=== PATIENT | male | born 1965 | race Caucasian/White ===

== ENCOUNTER 2016-07-19 18:16 | Inpatient (IN) | payer SELFPAY ==
--- NOTE | ~2016-07-19 | PN ---
Unit #: [id number] #: [id number] Patient: KANDACE LUCERO [id number] [facility] [address] [place] [address] [id number] MR#: [id number] NAME: KANDACE LUCERO ROOM: [facility] Age: 50 Sex: M Admission Date: 07/19/2016 : 1965 Attending Physician: Girish Medina M.D. Admitting Physician: Girish Medina M.D. Primary Care Physician: Generic Doctor Not In System [facility] PROGRESS NOTES DATE 07/21/2016 DISCUSSION The patient is in somewhat brighter spirits today and exhibits little in the way of signs or symptoms of withdrawal. Should he sustained progress discharge should take place as early as tomorrow. Dictated by... Girish Medina M.D. CB/joyce TD: 07/22/2016 00:46 JOB #: [id number] [facility] PROGRESS NOTES X Girish Medina MD X PROGRESS NOTE
--- NOTE | ~2016-07-19 | HP ---
Unit #: [id number] #: [id number] Patient: AKNDACE LUCERO [id number] [facility] [address] [place] [address] [id number] I MR#: [id number] NAME: KANDACE LUCERO ROOM: [facility] Age: 50 Sex: M Admission Date: 07/19/2016 : 1965 Attending Physician: Girish Medina M.D. Admitting Physician: Girish Medina M.D. Primary Care Physician: Generic Doctor Not In System HISTORY AND PHYSICAL HISTORY OF PRESENT ILLNESS The patient is a 50-year-old male admitted to [facility] on 07/19/2016 for alcohol and cocaine abuse. It was difficult to awaken the patient when I came in the room so some of the information was retrieved from his chart. PAST MEDICAL HISTORY 1. Alcohol abuse. 2. Drug abuse. 3. Nicotine dependence. PAST SURGICAL HISTORY [place]nee SOCIAL HISTORY The patient owns a restaurant. He currently lives in a home by himself. He smokes one pack of cigarettes daily, drinks one fifth of alcohol two to three times per week and uses cocaine one to two grams two to three times a week. FAMILY MEDICAL HISTORY Noncontributory. ALLERGIES No known drug allergies. CURRENT MEDICATIONS Prozac. REVIEW OF SYSTEMS CONSTITUTIONAL: No fever or chills. HEENT: Denies any sore throat, ear pain or runny nose. CARDIOVASCULAR: Denies chest pain, irregular heart rhythm or palpitations. CHEST: Denies shortness of breath or cough. No hemoptysis. GASTROINTESTINAL: Denies nausea, vomiting, diarrhea or chronic constipation. ENDOCRINE: Denies history of increased thirst or urination. No recent significant weight loss or gain. GENITOURINARY: Denies dysuria, frequency, or hematuria. SKIN: Denies any rashes. HEMATOLOGIC: Denies history of increased bleeding or bruising. MUSCULOSKELETAL: Denies any hot, swollen joints. No generalized muscle pain. NEUROLOGIC: Denies problems with vision or speech. No frequent, severe Unit #: [id number] #: [id number] Patient: KANDACE LUCERO headaches. No numbness, tingling or weakness in any extremities. Denies loss of bladder or bowel control. PHYSICAL EXAM GENERAL: He is difficult to awaken but is otherwise in no acute distress. VITAL SIGNS: Temperature 97.6, heart rate 95, respiration 17, blood pressure 139/104. HEIGHT: 5'11". WEIGHT: 205 pounds. SKIN: Warm and dry without rash or lesion. HEENT: Normocephalic. TMs not viewed. Oral and nasal passages clear. Conjunctivae clear. PERRLA. EOMs intact. NECK: Supple without lymphadenopathy or thyromegaly. HEART: Regular rate and rhythm without murmur. LUNGS: Clear. ABDOMEN: Soft, nontender. : Not done. EXTREMITIES: No evidence of cyanosis, clubbing or edema. Moves all without focal deficit. NEUROLOGICAL: Grossly within normal limits. Cranial Nerves: II: Visual leiva are intact. III, IV AND : Extraocular movements are intact. Pupils are equal, round and reactive to light. V: Facial sensation is grossly normal. VII: Facial movements and expression are normal. VIII: Auditory acuity grossly intact. IX, X: Uvula is midline. Phonation is normal. XI: Patient shrugs shoulders and turns head normally. XII: Tongue protrudes in the midline. Sensory and Motor Function: Sensory and motor sensation is grossly normal. Motor: moves all extremities well. IMPRESSION 1. Psychiatric admission. 2. Alcohol abuse. 3. Drug abuse. 4. Nicotine dependence. RECOMMENDATIONS Psychiatric per psychiatrist. MEDICAL: No contraindication to participate in facility activities. MEDICAL PROGNOSIS Good. MEDICAL CONDITION Stable. Dictated by... Romie Jolley/joyce TD: 07/21/2016 03:28 Unit #: [id number] #: [id number] Patient: KANDACE LUCERO JOB #: [id number] HISTORY AND PHYSICAL X TEETEE ALEXANDER APRN X HISTORY AND PHYSICAL
--- NOTE | ~2016-07-19 | PA ---
Unit #: [id number] #: [id number] Patient: KANDACE LUCERO [id number] [facility] [address] [place] [address] [id number] MR#: [id number] NAME: KANDACE LUCERO ROOM: [facility] Age: 50 Sex: M Admission Date: 07/19/2016 : 1965 Date of Assessment: 07/20/2016 Attending Physician: Girish Medina M.D. Admitting Physician: Girish Medina M.D. Primary Care Physician: Generic Doctor Not In System PSYCHIATRIC ASSESSMENT IDENTIFYING INFORMATION The patient is a 50-year-old white male admitted to the [address] [place] [address] with increasing abuse of alcohol and cocaine. CHIEF COMPLAINT None given. INFORMANT Chart, the patient could not be aroused for interview. HISTORY OF PRESENT ILLNESS The patient is a 50-year-old single white male admitted to the [address] [place] [address] with a history of alcohol and opioid abuse. He has never been admitted to this facility before and has not reported previous chemical dependence for other psychiatric treatment. 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 The patient was reportedly prescribed Prozac by his primary care physician. His compliance of this medication was uncertain however. When seen today the patient cannot be aroused for further interview. He has reported that he has been binging twice weekly on alcohol and cocaine. The patient denies any history of suicidal or homicidal ideation. PAST PSYCHIATRIC HISTORY None. PAST MEDICAL HISTORY Noncontributory. MEDICATIONS Prozac by history. ALLERGIES None reported. FAMILY HISTORY Noncontributory. 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 His substance use history is as noted previously. MENTAL STATUS EXAMINATION At this time reveals the patient to be a soundly sleeping white male who cannot be aroused for interview in spite of multiple efforts on the part Unit #: [id number] #: [id number] Patient: AKNDACE LUCERO of this physician. ASSETS AND LIABILITIES ASSETS: To be assessed. LIABILITIES: Financial issues. ADMITTING DIAGNOSES 1. Cocaine use disorder. 2. Alcohol use disorder. 3. Dysthymic disorder. PSYCHIATRIC PLAN/TREATMENT GOALS The patient will remain hospitalized for safety and stabilization. We will watch for signs and symptoms of alcohol withdrawal. ESTIMATED LENGTH OF STAY Three to five days with followup to take place through the auspices of community mental health resources in the [facility]. Dictated byCristy Medina M.D. CB/joyce TD: 07/21/2016 00:12 JOB #: [id number] PSYCHIATRIC ASSESSMENT X Girish Medina MD X PSYCHIATRIC ASSESSMENT
--- NOTE | ~2016-07-19 | DS ---
Unit #: [id number] #: [id number] Patient: KANDACE LUCERO [id number] [facility] [address] [place] [address] [id number] MR#: [id number] NAME: KANDACE LUCERO ROOM: [facility] Age: 50 Sex: M Admission Date: 07/19/2016 : 1965 Discharge Date: 07/22/2016 Attending Physician: Girish Medina M.D. Primary Care Physician: Generic Doctor Not In System DISCHARGE SUMMARY REASON FOR ADMISSION The patient is a 50-year-old white male, admitted with history of cocaine and alcohol abuse. HOSPITAL COURSE The patient was admitted to the [facility] unit and placed on routine detoxification protocol for alcohol. His detox was a brief and uneventful one. He was pleasant and cooperative in his interactions with peers and staff. By 07/22/2016, the patient requested discharge and stating that he would follow up through the auspices of in the [facility]. No medications were during the patient's stay in the hospital. FINAL DIAGNOSES Alcohol use disorder, cocaine use disorder, dysthymic disorder. DISPOSITION ON DISCHARGE No psychotropic or other medications were ordered at the time of discharge. FOLLOWUP The patient will follow up through the auspices of community mental health resources in the , [place] area. PROGNOSIS The patient's prognosis is considered fair. Dictated by... Girish Medina M.D. DANIEL/panfilo TD: 07/23/2016 04:10 JOB #: [id number] DISCHARGE SUMMARY X Girish Medina MD X DISCHARGE SUMMARY
[2016-07-20 12:40] LABS: BASOPHIL% 0.8 % (0-2.5); EOSINOPHIL# 0.2 X10e3 (0-0.7); EOSINOPHIL% 3.5 % (0.0-7.0); HEMATOCRIT 44.5 % (38.0-50.0); HEMOGLOBIN 15.4 gm/dL (13.0-16.0); LYMPHOCYTE# 1.5 X10e3 (1.0-3.5); LYMPHOCYTE% 31.6 % (17.0-45.0); MEAN CELL VOLUME 91.5 FL (83-96); MEAN CORPUSCULAR HEMOGLOBIN 31.6 PG (28-34); MEAN CORPUSCULAR HGB CONC 34.6 g/dL (30-36); MEAN PLATELET VOLUME 7.2 FL (6.5-11.5); MONOCYTE# 0.5 X10e3 (0-1.0); MONOCYTE% 11.1 % (3.0-12.0); NEUTROPHIL# 2.6 X10e3 (1.5-7.1); PLATELET COUNT 212 X10e3 (140-420); RED BLOOD COUNT 4.86 X10e (3.90-5.60); RED CELL DISTRIBUTION WIDTH 12.7 % (11.0-15.5); WHITE BLOOD COUNT 4.8 X10e3 (4.0-10.5)
[2016-07-20 12:41] LABS: DIFF IND NO
[2016-07-20 13:03] LABS: URINE APPEARANCE CLEAR; URINE BILIRUBIN NEG (NEG); URINE BLOOD NEG (NEG); URINE COLOR YELLOW; URINE GLUCOSE NEG (NEG); URINE KETONE NEG (NEG); URINE LEUKOCYTE ESTERASE NEG (NEG); URINE NITRATE NEG (NEG); URINE PH 6.5 (5-8); URINE PROTEIN NEG (NEG); URINE SPECIFIC GRAVITY 1.012 (1.003-1.035); URINE UROBILINOGEN 0.2 MG/DL (NEG)
[2016-07-20 13:13] LABS: AMPHETAMINE NEG (NEG); BARBITURATES NEG (NEG); BENZODIAZEPINES NEG (NEG); COCAINE POS (NEG); MARIJUANA NEG (NEG); OPIATES NEG (NEG); TRICYCLIC ANTIDEPRESSANTS NEG (NEG); U METHADONE NEG (NEG)
[2016-07-20 13:22] LABS: ALBUMIN SERUM 4.2 g/dL (3.5-5.0); ALKALINE PHOSPHATASE 117 U/L (32-92); ALT (SGPT) 26 U/L (10-40); AST (SGOT) 22 U/L (10-42); BILIRUBIN,TOTAL 0.8 mg/dL (0.2-2.0); BLOOD UREA NITROGEN 12 mg/dL (9-23); CALCIUM SERUM 9.1 mg/dL (8.4-10.2); CARBON DIOXIDE 27 mmol/L (22-31); CHLORIDE 102 mmol/L (100-111); GLOM FILT RATE Estimated ABOVE60 mL/min (>60); GLUCOSE FASTING 82 mg/dL (70-110); POTASSIUM 4.2 mmol/L (3.5-5.1); PROTEIN TOTAL SERUM 6.9 g/dL (6.0-8.3); SODIUM 138 mmol/L (135-145); THYROID STIMULATING HORMONE 1.85 uIU/ml (0.34-5.60)
[2016-07-20 13:29] LABS: FREE THYROXIN (T4) 0.85 ng/dL (0.58-1.64)
== END 2016-07-22 16:05 | disposition home or self-care (01) | DRG 897 ==
LOC: P1E 18:16
PROVIDERS: Specialist
PROC: HZ2ZZZZ Detoxification Services for Substance Abuse Treatment (ICD-10-PCS; principal; 2016-07-19)
DX: F14.10 Cocaine abuse, uncomplicated (principal); F10.20 Alcohol dependence, uncomplicated; F34.1 Dysthymic disorder; F17.200 Nicotine dependence, unspecified, uncomplicated
CPT/HCPCS: 80053; 80307; 81003; 84439; 84443; 85025; 86592